=== PATIENT | male | born 1960 | race Caucasian/White ===

== ENCOUNTER 2016-08-17 17:16 | Emergency (ER) | payer BC ==
[2016-08-17 17:42] VITALS: BP 136/67; PULSE 92; RESP 16; TEMP 97.7
--- NOTE | 2016-08-17 18:37 | XR ---
EXAMINATION TYPE: XR hand complete RT DATE OF EXAM: 08/17/2016 COMPARISON: NONE HISTORY: Pain TECHNIQUE: Three-view right hand FINDINGS: No acute fractures are evident. Soft tissues may be slightly prominent over the proximal fi fth digit. Some prominence of the thenar eminence soft tissues between the first and second digits ar e present. Soft tissues are otherwise unremarkable. Joint spaces are preserved. No radiopaque foreign bodies are evident. IMPRESSION: 1. Soft tissue prominence between the first and second digit likely at the proximal fifth digit. 2. No acute osseous abnormality. 3. No radiopaque foreign body.
--- NOTE | 2016-08-17 18:54 | ED ---
Upper Extremity HPI - General Chief Complaint: Extremity Injury, Upper Stated Complaint: finger swelling Time Seen by Provider: 08/17/16 18:14 Source: patient Mode of arrival: ambulatory Limitations: no limitations - History of Present Illness Initial Comments: This is a pleasant, [id number] 55-year-old male who presents emergency department complaining of pain to his right first interdigital space. Patient states that the pain is sharp when he moves his thumb. Patient states his developed over about a week. Patient does not recall any significant injury but does do repetitive work at a factory. Patient denies any numbness or tingling. Patient denies any other orthopedic complaints. No chest pain or shortness of breath. No fever or chills. Pain is exacerbated by movement and alleviated by rest. There is no radiation. Sharp in character MD Complaint: Injury to:: right, finger (Right thumb) - Related Data Home Medications Medication Instructions Recorded Confirmed Insulin Glargine [Lantus] 65 unit SQ DAILY 08/03/15 09/11/15 HYDROcodone/APAP 7.5-325MG [Simpson 1 tab PO DAILY PRN 09/11/15 09/11/15 7.5-325] Mirtazapine [Remeron] 15 mg PO HS 09/11/15 09/11/15 Previous Rx's Medication Instructions Recorded Divalproex [Depakote] 250 mg PO TID #90 tablet. 09/13/15 Escitalopram [Lexapro] 20 mg PO DAILY #30 tab 09/13/15 Insulin Glargine [Lantus] 70 unit SQ DAILY vial 09/13/15 Levothyroxine Sodium [Synthroid] 25 mcg PO QAM tab 09/13/15 Megestrol [Megace] 20 mg PO QAM #30 tab 09/13/15 clonazePAM [KlonoPIN] 1 mg PO AC-TID #60 tab 09/13/15 traMADol HCl [Ultram] 50 mg PO BID #30 tab 09/13/15 traZODone HCL [Desyrel] 100 mg PO PC-SUPPER #30 tab 09/13/15 Allergies Allergy/AdvReac Type Severity Reaction Status Date / Time shellfish derived AdvReac Severe Vomiting Verified 09/10/15 18:25 gabapentin [From Neurontin] AdvReac Confusion Verified 08/17/16 17:44 Review of Systems ROS Statement: Those systems with pertinent positive or pertinent negative responses have been documented in the HPI. ROS Other: All systems not noted in ROS Statement are negative. Past Medical History Past Medical History: Cancer, Diabetes Mellitus, Musculoskeletal Disorder, Thyroid Disorder Additional Past Medical History / Comment(s): COLON CA, DOUBLE hernia, CHRONIC BACK PAIN L-4 L-5 History of Any Multi-Drug Resistant Organisms: None Reported Past Surgical History: Back Surgery, Bowel Resection, Orthopedic Surgery Additional Past Surgical History / Comment(s): Bowel Resection 12/09/14 Past Anesthesia/Blood Transfusion Reactions: No Reported Reaction Past Psychological History: Depression Smoking Status: Current every day smoker Past Alcohol Use History: None Reported Additional Past Alcohol Use History / Comment(s): STARTED SMOKING YOUNGER THAN 15, SMOKES 1 AND 1/2 TO 2PPD, Past Drug Use History: None Reported General Exam - General Exam Comments Initial Comments: Well-developed, well-nourished 55-year-old male in no distress Limitations: no limitations General appearance: alert, in no apparent distress Head exam: Present: atraumatic, normocephalic, normal inspection Eye exam: Present: normal appearance, EOMI. Absent: scleral icterus, conjunctival injection Neck exam: Present: normal inspection. Absent: tenderness, meningismus, lymphadenopathy Respiratory exam: Present: normal lung sounds bilaterally. Absent: respiratory distress, wheezes, rales, rhonchi, stridor Cardiovascular Exam: Present: regular rate, normal rhythm, normal heart sounds. Absent: systolic murmur, diastolic murmur, rubs, gallop, clicks Extremities exam: Present: other (Patient has some tenderness to the extensor pollicis longus tendon at the first MCP of the right hand. Patient has limited range of motion as far as opposition. Capillary refill less than 2 seconds. No evidence of vascular injury. There is no evidence of infection. No erythema. No necrosis. No lymphangitis.) Back exam: Present: normal inspection Neurological exam: Present: alert, oriented X3, CN II-XII intact, normal gait. Absent: motor sensory deficit, reflexes normal Psychiatric exam: Present: normal affect, normal mood Course Vital Signs 08/17/16 17:40 Temperature 97.7 F Pulse Rate 92 Respiratory 16 Rate Blood Pressure 136/67 O2 Sat by Pulse 98 Oximetry Procedures - Procedures Initial comment: Short arm OCL splint applied by me. Thumb spica. Distal neurovascular status intact both pre-and post-application. Medical Decision Making - Medical Decision Making Patient counseled on repetitive use injury. - Differential Diagnosis Repetitive use versus occult fracture - Radiology Data Radiology results: image reviewed (Three-view x-ray of the right hand read by me reveals no evidence of acute pathology. Awaiting radiology interpretation.) Disposition Clinical Impression: Tendonitis of right hand Narrative: Patient has a repetitive use injury Disposition: HOME SELF-CARE Condition: Good Instructions: Tendinitis (ED) Additional Instructions: Follow-up with the occupational medicine clinic as directed. Take over-the- counter ibuprofen and/or acetaminophen for pain control.Return to the ER at once if the symptoms worsen or problems or difficulties arise. Referrals: Dawit Dennis MD [Primary Care Provider] - 1-2 days Time of Disposition: 18:44
== END 2016-08-17 18:53 | disposition home or self-care (01) ==
LOC: EC 17:16
DX: M77.9 Enthesopathy, unspecified (principal); E11.9 Type 2 diabetes mellitus without complications; F32.9 Major depressive disorder, single episode, unspecified; F17.200 Nicotine dependence, unspecified, uncomplicated; Z85.038 Personal history of other malignant neoplasm of large intestine; Z88.8 Allergy status to other drugs, medicaments and biological substances; Z91.013 Allergy to seafood; Z79.4 Long term (current) use of insulin; Z79.899 Other long term (current) drug therapy
CPT/HCPCS: 29125; 99283

== ENCOUNTER → 2018-11-25 | Outpatient (CLI) | payer OTHER ==
[2018-11-25 13:14] LABS: Basophils % (A) 1 %; Eosinophils # (A) 0.1 k/uL (0-0.7); Eosinophils % (A) 3 %; HCT 46.6 % (39.0-53.0); Lymphocytes # (A) 2.3 k/uL (1.0-4.8); Lymphocytes % (A) 44 %; MCH 31.1 pg (25.0-35.0); MCHC 32.3 g/dL (31.0-37.0); MCV 96.4 fL (80.0-100.0); Mean Platelet Volume 7.9; Monocytes # (A) 0.3 k/uL (0-1.0); Monocytes % (A) 6 %; Neutrophils # (A) 2.3 k/uL (1.3-7.7); Neutrophils % (A) 45 %; Platelet Count 199 k/uL (150-450); RBC 4.83 m/uL (4.30-5.90); RDW 13.3 % (11.5-15.5); WBC 5.1 k/uL (3.8-10.6)
[2018-11-25 18:23] LABS: African American GFR (CKD) 108.7 (60.0-200.0); Albumin 4.7 g/dL (3.80-4.90); Albumin/Globulin Ratio 2.35 (1.60-3.17); Anion Gap 8.9 mmol/L (4.00-12.00); BUN/Creat Ratio 17.78 Ratio (12.00-20.00); Calcium 9.6 mg/dL (8.7-10.3); Carbon Dioxide 27.1 mmol/L (21.6-31.8); Chol/HDL Ratio 2.92; LDL Cholesterol,Calculated 146.6 mg/dL (0.0-131.0); Potassium 4.6 mmol/L (3.5-5.5); Total Bilirubin 0.4 mg/dL (0.3-1.2); Total Protein 6.7 g/dL (6.2-8.2); VLDL Calculation 18.4 mg/dL (5.00-40.00)
[2018-11-25 18:31] LABS: T4, Free (Free Thyroxine) 1.1 ng/dL (0.80-1.80)
[2018-11-25 22:31] LABS: Hemoglobin A1C 12.9 % (4.0-6.0)
== END | disposition home or self-care (01) ==
LOC: LABWHC1 12:21
PROVIDERS: ATTEND Internal Medicine
DX: E11.9 Type 2 diabetes mellitus without complications (principal); N40.0 Benign prostatic hyperplasia without lower urinary tract symptoms; I95.89 Other hypotension; R53.83 Other fatigue
CPT/HCPCS: 36415; 80053; 80061; 83036; 84153; 84439; 84443; 84481; 85025

== ENCOUNTER → 2019-10-23 | Outpatient (CLI) | payer OTHER ==
--- NOTE | 2019-10-23 16:09 | MR ---
EXAMINATION TYPE: MR lumbar spine wo/w con DATE OF EXAM: 10/23/2019 COMPARISON: NONE HISTORY: lumbago and paresthesia, history of prior surgery 2001. Pain for 20 years going into both lo wer extremities per patient. TECHNIQUE: Multiplanar, multisequence images of the lumbar spine is performed without and with IV contrast, util izing 6 mL intravenous Gadavist FINDINGS: Sagittal images of the lumbar spine show vertebral body heights and alignment to appear sat isfactory. There is disc desiccation L4-L5 and L5-S1 levels. There is moderate disc space narrowing L 5-S1 level. The conus medullaris is normal in position and signal ending at mid L1 level. The bone m arrow signal intensity is within normal limits. No suspicious postcontrast enhancement. Mild multilev el anterior spurring. Axial images show at T12-L1, L1-L2, L2-L3, and L3-L4 levels all to appear within normal limits. Axial images at the L4-L5 level show tiny left paracentral disc protrusion minimally effacing anterio r thecal sac and mild facet degenerative changes bilaterally. Bilateral neural foramina are patent. Axial images at the L5-S1 level show focal right paracentral disc protrusion with spinal canal is pre served and there is increased epidural fat at this level. There is mild to moderate left greater than right facet degenerative changes. Bilateral neural foramina are patent. Some scar tissue surrounds t he central left S1 nerve at this level. Patient has little intra-abdominal fat. Paraspinal muscle bulk is fairly well-preserved. Axial precon trast T1 imaging is not performed. Nonspecific enhancement of an occasional lumbar nerve without susp icious clumping. IMPRESSION: Postsurgical change posterior lumbosacral junction. Some degenerative changes in the lowe r lumbar spine as detailed above.
== END | disposition home or self-care (01) ==
LOC: RADMRIMAIN 14:25
PROVIDERS: ATTEND Psychiatry & Neurology Neurology
DX: M47.816 Spondylosis without myelopathy or radiculopathy, lumbar region (principal); Z98.890 Other specified postprocedural states; Z88.8 Allergy status to other drugs, medicaments and biological substances
CPT/HCPCS: 72158; A9585

== ENCOUNTER → 2019-12-04 | Outpatient (CLI) | payer OTHER ==
[2019-12-05 01:05] LABS: Albumin 4.4 g/dL (3.80-4.90); Albumin/Globulin Ratio 2.44 (1.60-3.17); Anion Gap 9.6 mmol/L (4.00-12.00); BUN/Creat Ratio 26.67 Ratio (12.00-20.00); Calcium 9.2 mg/dL (8.7-10.3); Carbon Dioxide 27.4 mmol/L (21.6-31.8); Globulin 1.8 g/dL (1.6-3.3); Non-African American GFR(CKD) 93.2 (60.0-200.0); Potassium 4.4 mmol/L (3.5-5.5); Total Bilirubin 0.4 mg/dL (0.2-1.2); Total Protein 6.2 g/dL (6.2-8.2)
== END | disposition home or self-care (01) ==
LOC: LABWHC1 15:49
PROVIDERS: ATTEND Internal Medicine Clinical Cardiac Electrophysiology
DX: E11.9 Type 2 diabetes mellitus without complications (principal); E78.5 Hyperlipidemia, unspecified; R55 Syncope and collapse
CPT/HCPCS: 36415; 80053; 82533; 84443

== ENCOUNTER → 2020-11-08 | Outpatient (CLI) | payer OTHER ==
--- NOTE | 2020-11-09 12:01 | P.ARTDOP ---
Arterial Doppler LOWER EXTREMITY ARTERIAL DOPPLER: DATE OF SERVICE: 11/08/2020 Reason for study: Bilateral leg pain with walking. Doppler waveforms: Multiphasic bilaterally throughout. Pulse volume recording: []. Pressure gradients: None. Ankle-brachial indices: Greater than 1 bilaterally. Toe brachial indices: 0.75 on the right, 0.74 on the left Impression: Normal study.
== END | disposition home or self-care (01) ==
LOC: RADUSWWP 14:25
PROVIDERS: ATTEND Internal Medicine
DX: M79.605 Pain in left leg (principal); M79.604 Pain in right leg
CPT/HCPCS: 93922